=== PATIENT | male | born 1935 | race Caucasian/White ===

== ENCOUNTER 2022-08-05 07:23 | Outpatient (CLI) | payer MEDICARE ==
[2022-08-05] MEDS ORDERED: Sodium Bicarbonate 2.5 MEQ/5 ML VIAL ONE (07:41)
[2022-08-05] MEDS ORDERED: Lidocaine 1% PF 5 ML VIAL ONE (07:41)
[2022-08-05] MEDS ORDERED: Iopamidol-M 200 41% 20 ML VIAL ONE (10:18)
== END 2022-08-05 10:05 | disposition home or self-care (01) ==
LOC: CSHRAD 07:23
PROVIDERS: ATTEND Neurological Surgery
DX: M54.50 Low back pain, unspecified (principal); M47.816 Spondylosis without myelopathy or radiculopathy, lumbar region
CPT/HCPCS: 62304; 72132